=== PATIENT | male | born 1935 | race Caucasian/White ===

== ENCOUNTER 2019-06-29 20:21 | Inpatient (IN) | payer MEDICARE, OTHER ==
[~2019-06-29] VITALS: Ht 170.2 cm; Wt 117.7 kg
[2019-06-29 20:40] VITALS: BP 162/81
[2019-06-29 21:29] LABS: ABSOLUTE BASOPHILS 0.1 thou/uL (0.0-0.2); ABSOLUTE EOSINOPHILS 0.2 thou/uL (0.0-0.7); ABSOLUTE LYMPHOCYTES 0.7 thou/uL (0.8-5.3); ABSOLUTE MONOCYTES 1.2 thou/uL (0.0-1.2); BASOPHILS 0.7 %; EOSINOPHILS 1.7 %; HEMATOCRIT 41.4 % (42.0-52.0); HEMOGLOBIN 13.8 gm/dL (14.0-18.0); LYMPHOCYTES 7.9 %; MCH 29.6 pg (26.0-34.0); MCHC 33.4 g/dL (28.0-37.0); MCV 88.7 fL (80.0-100.0); MONOCYTES 13.3 %; MPV 7.8 fl. (7.2-11.1); NUCLEATED RBCS 0 /100WBC; PLATELET COUNT* 143 thou/uL (150-400); POLYS 76.4 %; RBC 4.67 mil/uL (4.50-6.00); RDW-CV 20.3 % (10.5-14.5); WBC 9.1 thou/uL (4.0-11.0)
[2019-06-29 21:44] LABS: CALCIUM 8.7 mg/dL (8.5-10.1); CREATININE 1.8 mg/dL (0.6-1.3); POTASSIUM 4.7 mmol/L (3.5-5.1)
[2019-06-29 21:49] LABS: INFLUENZA A ANTIGEN Negative (Negative); INFLUENZA B ANTIGEN Negative (Negative)
[2019-06-29 21:55] LABS: ALBUMIN 3.2 g/dL (3.4-5.0); TOTAL BILIRUBIN 0.3 mg/dL (<0.1-1.0); TOTAL PROTEIN 7.4 g/dL (6.4-8.2)
[2019-06-29 21:57] LABS: URINE BILIRUBIN NEGATIVE (Negative); URINE BLOOD TRACE (Negative); URINE CLARITY CLEAR; URINE COLOR YELLOW; URINE GLUCOSE-RANDOM NEGATIVE (Negative); URINE KETONES NEGATIVE (Negative); URINE LEUKOCYTES-REFLEX NEGATIVE (Negative); URINE NITRITE-REFLEX NEGATIVE (Negative); URINE PROTEIN 2+ (Negative); URINE SPECIFIC GRAVITY 1.025 (1.005-1.030); URINE UROBILINOGEN 0.2 E.U./dl (0.2-1.0)
[2019-06-29 22:11] LABS: BACTERIA-REFLEX 1-9 Few /HPF (None Seen); CRYSTALS None Seen /LPF (None Seen); HYALINE CASTS 0-3 Few /LPF (None Seen); SQUAMOUS 0-3 Few /LPF (0-3); URINE RBC 0-2 Rare /HPF (0-2); URINE WBC-REFLEX 0-5 Rare /HPF (0-5)
[2019-06-29 22:18] LABS: ANISOCYTOSIS 2+; PLATELET ESTIMATE ADEQUATE; POIKILOCYTOSIS 1+
[2019-06-29 23:50] VITALS: BP 160/69
[2019-06-29 23:53] VITALS: BP 162/68
[2019-06-30 04:01] VITALS: BP 141/71
--- NOTE | 2019-06-30 07:38 | NUR ---
RECEIVED REPORT AND ASSUMED CARE. ADMISSION COMPLETED BY NURSING. PT HOME MED REC NOT COMPLETED, PT UNABLE TO REPORT , STATES HE WILL HAVE TO GET FROM HIS 06/30/19. LATER IN SHIFT PT HAD MOBITZ TYPE 2 HEART BLOCK. HR 27. CARDIOLOGY NOTIFIED HOURLY ROUNDING COMPLETED AND ALL NEEDS MET
[2019-06-30 08:00] VITALS: BP 151/85
[2019-06-30] MEDS ORDERED: FLOMAX0.4 MG PO (08:59)
[2019-06-30] MEDS ORDERED: LEXAPRO 10 MG T10 M1 PO (09:00)
[2019-06-30] MEDS ORDERED: HYDRALAZINE 5050 MG PO (09:01)
[2019-06-30] MEDS ORDERED: COZAAR 25 MG TA25 M1 PO (09:02)
[2019-06-30] MEDS ORDERED: PLAVIX 75 MG TA75 M1 PO (09:03)
[2019-06-30] MEDS ORDERED: NORVASC 2.5 MG2.5 M1 PO (09:03)
[2019-06-30] MEDS ORDERED: LASIX 40 MG TAB40 MG PO (09:04)
[2019-06-30] MEDS ORDERED: CARVEDILOL25 MG PO (09:05)
[2019-06-30] MEDS ORDERED: NEURONTIN100 MG PO (09:06)
[2019-06-30] MEDS ORDERED: LEVO-T25 MCG PO (09:25)
[2019-06-30] MEDS ORDERED: ISOSORBIDE DINI30 MG PO (09:26)
[2019-06-30] MEDS ORDERED: MELATONIN3 M1 PO (09:27)
--- NOTE | 2019-06-30 10:52 | EKG ---
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
[2019-06-30 11:12] LABS: ABSOLUTE EOSINOPHILS 0.2 thou/uL (0.0-0.7); ABSOLUTE LYMPHOCYTES 0.8 thou/uL (0.8-5.3); ABSOLUTE NEUTROPHILS 5.8 thou/uL (1.6-8.1); BASOPHILS 0.4 %; EOSINOPHILS 1.9 %; HEMATOCRIT 41.5 % (42.0-52.0); HEMOGLOBIN 13.8 gm/dL (14.0-18.0); LYMPHOCYTES 10.2 %; MCH 29.5 pg (26.0-34.0); MCHC 33.2 g/dL (28.0-37.0); MCV 88.9 fL (80.0-100.0); MONOCYTES 12.5 %; MPV 7.4 fl. (7.2-11.1); NUCLEATED RBCS 0 /100WBC; PLATELET COUNT* 137 thou/uL (150-400); RBC 4.67 mil/uL (4.50-6.00); WBC 7.8 thou/uL (4.0-11.0)
[2019-06-30 11:17] LABS: CALCIUM 8.9 mg/dL (8.5-10.1); CREATININE 1.6 mg/dL (0.6-1.3); POTASSIUM 4.4 mmol/L (3.5-5.1)
[2019-06-30 12:00] VITALS: BP 141/72
--- NOTE | 2019-06-30 12:16 | NUR ---
STAFF WAS W/PT; CM UNABLE TO COMPLETE ASSESSMENT. PER CHART: PT LIVES W/DTR, PREV. STATED AT LTC FACILITY. PT USE 2L O2 @ HOME.
--- NOTE | 2019-06-30 15:13 | 2DMMODE ---
[place] [address] 2 D/M-MODE ECHOCARDIOGRAM Name: ASHLEY SANDERS Room: [facility] ADM IN [place].[facility].#: [id number] Admission: 06/29/19 Attend Phys: Larissa Butler, Discharge: Date of : 31 Date of Service: 06/30/19 1512 Report #: [id number] THIS REPORT FOR: cc: Radha Bueno NP, Stefany NP Blick, David R. MD [facility] ~ APPROVED REPORT Study performed: 06/30/2019 10:47:02 EXAM: Comprehensive 2D, Doppler, and color-flow Echocardiogram Patient Location: In-Patient Room #: 227 Status: routine BSA: 2.15 HR: 62 bpm BP: 141/71 mmHg Rhythm: NSR Other Information Study Quality: Good Indications Dyspnea CAD 2D Dimensions IVSd: 10.08 (7-11mm) LVOT Diam: 19.78 (18-24mm) LVDd: 58.28 mm PWd: 10.92 (7-11mm) Ascending Ao: 39.89 (22-36mm) LVDs: 43.20 (25-40mm) Aortic Root: 36.28 mm Volumes Left Atrial Volume (Systole) LA ESV Index: 36.80 mL/m2 Aortic Valve AoV Peak Enzo.: 1.79 m/s AO Peak Gr.: 12.82 mmHg LVOT Max P.81 mmHg AO Mean Gr.: 7.47 mmHg LVOT Mean P.76 mmHg LVOT Max V: 1.21 m/s AO V2 VTI: 40.10 cm LVOT Mean V: 0.76 m/s MARIUSZ (VTI): 1.96 cm2 LVOT V1 VTI: 25.63 [place] [address] 2 D/M-MODE ECHOCARDIOGRAM Name: MARILYNASHLEY Jerri Room: [address] IN [facility].#: [id number] Admission: 06/29/19 Attend Phys: Larissa Butler, Discharge: Date of : 31 Date of Service: 06/30/19 1512 Report #: [id number] Mitral Valve E/A Ratio: 0.90 MV Decel. Time: 246.56 ms MV E Max Enzo.: 1.07 m/s MV PHT: 71.50 ms MVA (PHT): 3.08 cm2 TDI E/Lateral E': 8.92 Lateral E' Enzo.: 0.12 m/s Pulmonary Valve PV Peak Enzo.: 0.99 m/s PV Peak Gr.: 3.89 mmHg Left Ventricle Left ventricle is mildly dilated. paradoxical septal motion consistent with previous thoracotomy There is normal left ventricular wall thickness. Left ventricular systolic function is severely decreased. LVEF is 25-30%. The left ventricular diastolic function is normal. Right Ventricle The right ventricle is normal size. The right ventricular systolic function is normal. Atria Left atrium is mildly dilated. The right atrium size is normal. Aortic Valve The aortic valve is normal in structure. Trace aortic regurgitation. There is no aortic valvular stenosis. Mitral Valve The mitral valve is normal in structure. Trace mitral regurgitation. No evidence of mitral valve stenosis. Tricuspid Valve The tricuspid valve is normal in structure. There is trace tricuspid valve regurgitation noted. Pulmonic Valve The pulmonary valve is normal in structure. Trace [place]mon[place] [address] 2 D/M-MODE ECHOCARDIOGRAM Name: ASHLEY SANDERS Room: [address] IN .R.#: [id number] Admission: 06/29/19 Attend Phys: Larissa Butler, Discharge: Date of : 31 Date of Service: 06/30/19 151 Report #: [id number] [place] Aortic root is mildly dilated. IVC is normal in size and collapses >50% with inspiration. Pericardium There is no pericardial effusion. <Conclusion> LVEF is 25-30%. Left atrium is mildly dilated. <ELECTRONICALLY SIGNED> By: Tom Obando MD, [facility] 03/1511 11 11 Tom Obando MD, FACC /INF
[2019-06-30 16:00] VITALS: BP 145/82
--- NOTE | 2019-06-30 16:51 | CON ---
[address] [address] CONSULTATION Name: ASHLEY SANDERS Room: [place] [address] ADM IN [facility].#: [id number] Admission: 06/29/19 Attend Phys: Larissa Butler MD Discharge: Date of : 31 Report #: [id number] THIS REPORT FOR: //name// cc: Radha Bueno NP, Stefany NP ~ THIS REPORT FOR: //name// CC: Larissa Bueno NP DATE OF SERVICE: 06/30/2019 CARDIOLOGY CONSULTATION HISTORY OF PRESENT ILLNESS: The patient is an 84-year-old white male who I was asked to see in the hospital today after he complained of lower extremity edema. The history is obtained from the patient as well as some old records. He has never been here to [place] before. According to the records, he had coronary artery bypass surgery years ago. He does not know which hospital he had that. He denies recent chest pain. Because the patient is not very active and uses a walker, he is currently being transitioned from home to a [facility] facility. He actually saw his nurse practitioner a week ago for swelling of his feet. He has had some shortness of breath, but no fever or cough. He was brought to the Emergency Room last night by private vehicle because of increasing shortness of breath and leg swelling. He has been in assisted living now. He is on oxygen at home. PAST MEDICAL HISTORY: Otherwise significant for knee surgery. MEDICATIONS: Consist of insulin, amlodipine, losartan, carvedilol, Synthroid, Lasix, Plavix, Imdur, Flomax, Neurontin, and hydralazine. ALLERGIES: He had a previous INTOLERANCE to RANEXA. FAMILY HISTORY: Noncontributory. SOCIAL HISTORY: He is . He and his live in [place]. No smoking. No alcohol abuse. REVIEW OF SYSTEMS: He has had no previous history of stroke. He does have COPD. He has memory loss, chronic kidney disease. No cancer. He is overweight. PHYSICAL EXAMINATION: GENERAL: Revealed an obese elderly male, appeared [place] [address] CONSULTATION Name: ASHLEY SANDERS Room: [address] IN [facility]#: [id number] Admission: 06/29/19 Attend Phys: Larissa Butler MD Discharge: Date of : 31 Report #: [id number] VITAL SIGNS: He had a blood pressure of 140/70, pulse 60, he is afebrile. HEENT: He was anicteric. Conjunctivae are pink. Mucous members moist. CHEST: Revealed expiratory wheezes. CARDIOVASCULAR: Regular rate and rhythm. ABDOMEN: Obese. EXTREMITIES: He had trace edema. Dorsalis pedis pulse 2+ bilaterally. SKIN: Warm and dry. NEUROLOGIC: Nonfocal. RADIOLOGICAL DATA: His ECG on admission showed a sinus rhythm, first-degree AV block, left bundle branch block. Last night, ECG showed sinus rhythm with 2:1 AV block consistent with Mobitz type 2 block. His workup, he had portable chest x-ray in the Emergency Room last night that showed cardiomegaly and clear lung finn. LABORATORY DATA: Sodium 139, BUN 32, creatinine 1.8, glucose 136, and BNP 607. Troponin 0.06. White blood cell count 9.1, hematocrit 41.4. Urinalysis 2+ protein, few bacteria, rare white blood cells. IMPRESSION AND RECOMMENDATIONS: 1. Mobitz type 2 atrioventricular block. I would discontinue the patient's beta-bernard. I would check thyroid function studies. 2. Coronary artery disease. Previous bypass surgery. No recent angina. The patient is on Plavix. 3. Lower extremity edema. Suspect venous insufficiency. 4. Chronic kidney disease. I would check echocardiogram. 5. Hypertension. The patient is on calcium bernard, ARB, and beta-bernard. <ELECTRONICALLY SIGNED> By: Tom Obando MD, FACC 06/30/19 1651 0852 [id number] Obando MD, FACC /nt
--- NOTE | 2019-06-30 18:10 | NUR ---
PATIENT RESTING IN BED. BEDREST ORDERED. LOWER EXTREMITY 2+/3+ EDEMA. PATIENT HAS PERIODS OF SEVERE CONFUSION THAT REQIURES QUICK REACTION TO PREVENT FROM FALLS, HE HAS BEEN REORIENTED MULTIPLE TIMES TODAY IN RESPECT TO PLACE, SITUATION, AND LENGTH OF TIME IN HOSPITAL. HOURLYR ROUNDING IS BEING COMPLETED FOR PATIENT SAFETY.
[2019-06-30 20:30] VITALS: BP 151/77
[2019-07-01] VITALS (7 sets, daily range): BP systolic 110–173; BP diastolic 50–86
--- NOTE | 2019-07-01 05:49 | NUR ---
PT FOUND AT BEGINING OF SHIFT WANDERING AROUND IN ROOM, USING THE LINEN CART A WALKER. PT HAD BEEN INCONTINENT OF B&B AND PULLED OUT HIS IV. PT VERY CONFUSED STATING THAT HE THOUGHT THAT HE WAS TRYING TO ESCAPE. PT CLEANED UP, BED CHANGED AND MOVED TO A ROOM CLOSER TO THE NURSES STATION. NOTIFIED THAT PTS CONFUSION IS INCREASING. FALL PRECAUTIONS IN PLACE. ISOLATION MAINTAINED. PT REPORTED NO PAIN THIS SHIFT. WILL CONTINUE WITH PLAN OF CARE.
[2019-07-01 06:03] LABS: CALCIUM 8.8 mg/dL (8.5-10.1); CREATININE 1.3 mg/dL (0.6-1.3); POTASSIUM 3.9 mmol/L (3.5-5.1)
--- NOTE | 2019-07-01 10:39 | NUR ---
WOUND NURSE: PATIENT PROVIDED WITH SIZE F TUBIGRIPS FOR BLE EDEMA -- GIVEN TO HIS NURSE, ROGER. HOWEVER, PATIENT ATTEMPTED TO WONDER OUT OF ROOM. ASSISTED WHITEWATER RAFTING GUIDE IN RETURNING PATIENT TO BED.
--- NOTE | 2019-07-01 10:57 | NUR ---
WOUND NURSE: PATIENT SEEN TO APPLY SIZE F TUBIGRIPS TO HELP CONTROL PERIPHERAL EDEMA TO BLE. THIS WAS PERFORMED BY THIS NURSE. PATIENT WITH FEW CONTUSIONS ALONG THE RIGHT TIBIAL ASPECT AND WHICH ARE CLOSED WITH INTACT STABLE SCABS. NO DRESSING REQUIRED TO THIS AREA AT THIS TIME.
--- NOTE | 2019-07-01 11:35 | CON ---
[address] [address] CONSULTATION Name: ASHLEY SANDERS Room: [address] IN [facility].R.#: [id number] Admission: 06/29/19 Attend Phys: Larissa Butler MD Discharge: Date of : 31 Report #: [id number] THIS REPORT FOR: //name// cc: Radha Bueno NP, Stefany NP ~ THIS REPORT FOR: //name// CC: Larissa Bueno DATE OF SERVICE: 06/30/2019 REQUESTING PHYSICIAN: Larissa Butler MD REASON FOR CONSULTATION: Anasarca, chronic kidney disease. HISTORY OF PRESENT ILLNESS: The patient is an 84-year-old gentleman who presents to the hospital with complaints of lower extremity edema. The patient also apparently has some shortness of breath on admission, but during my examination, when I asked him about shortness of breath, he said that he did not have shortness of breath. It is possible that he has some dementia and cannot really remember all the symptoms, the patient is 84 years old. His creatinine on admission was 1.8, it is 1.6 now. I do not know baseline of his creatinine. PAST MEDICAL HISTORY: Significant for: 1. Diabetes mellitus type 2. 2. Coronary artery disease status post bypass graft surgery. 3. History of hypertension. 4. Obesity. MEDICATIONS: The medications that he was taking at home include: 1. Amlodipine. 2. Flomax. 3. Imdur. 4. Plavix. 5. Lasix. 6. Losartan. 7. Carvedilol. 8. Synthroid. Here in the hospital, he was resumed on: 1. Tamsulosin. 2. Albuterol. 3[place] [address] CONSULTATION Name: ASHLEY SANDERS Room: [address]#: [id number] Admission: 06/29/19 Attend Phys: Larissa Butler MD Discharge: Date of : 33 Report #: [id number] 4. Furosemide 40 mg IV daily. 5. Plavix. His amlodipine was appropriately stopped. FAMILY HISTORY: Noncontributory. SOCIAL HISTORY: No current tobacco or alcohol abuse. REVIEW OF SYSTEMS: Positive for the symptoms as I mentioned earlier. However, it is not very reliable. PHYSICAL EXAMINATION: GENERAL: Awake, alert. VITAL SIGNS: Blood pressure 140/71, heart rate 60, respirations 19, afebrile. HEENT: Pupils are round. NECK: Fatty. LUNGS: Decreased air movements. CARDIOVASCULAR: Regular rate. ABDOMEN: Obese, soft. LOWER EXTREMITIES: Chronic 1-2+ edema. LABORATORY DATA: Serum sodium 142, potassium 4.4, chloride 104, carbon dioxide 34, BUN 27, creatinine 1.6. Urinalysis showed some 2+ protein, trace blood, 2-3 red blood cells, 0-5 white blood cells, few bacteria. ASSESSMENT: 1. Edema, probably multifactorial, probably combination of his age who has been ____, use of amlodipine and possible congestive heart failure. 2. 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 3. Hypertension. 4. Diabetes mellitus type 2. 5. Obesity. 6. Cardiomyopathy. He has a very enlarged heart on chest x-ray. PLAN: 1. Avoid amlodipine due to edema. 2. Control his blood pressure. 3. Obtain renal ultrasound. 4. Follow his labs. 5. Follow [place] [address] CONSULTATION Name: ASHLEY SANDERS Jerri Room: [address] IN .R.#: [id number] Admission: 06/29/19 Attend Phys: Larissa Butler MD Discharge: Date of : 31 Report #: [id number] Thank you very much for asking my opinion. <ELECTRONICALLY SIGNED> By: Olivier Anderson MD 07/01/19 1135 1215 1319Atiesha Anderson MD /nt
--- NOTE | 2019-07-01 14:14 | EKG ---
[place] [address] ELECTROCARDIOGRAM REPORT Name: ASHLEY SANDERS Room: [address] ADM IN .R.#: [id number] Admission: 06/29/19 Attend Phys: Larissa Butler, Discharge: Date of : 31 Date of Service: 07/01/19 0844 Report #: [id number] THIS REPORT FOR: //name// [facility] Test Date: 2019-07-01 Test Time: 08:44:56 Pat Name: ASHLEY SANDERS Department: Room: [facility] Gender: M Patient Access Manager: : 1935 Requested By: Tom Obando Order Number: [id number] Alexandr MD: Raheem Blackburn Measurements Intervals [place] Rate: 69 P: 37 DE: 298 QRS: -51 QRSD: 132 T: 127 QT: 410 QTc: 440 Interpretive Statements Sinus rhythm Prolonged DE interval Left bundle branch block Baseline wander in lead(s) V2 Compared to ECG 06/29/2019 21:02:37 No significant changes Electronically Signed On 07-01-2019 14:13:21 CDT by Raheem Blackburn [email or web address] <ELECTRONICALLY SIGNED> By: Raheem Blackburn MD, FACC 07/01/19 1413 0844 0844 Raheem Blackburn MD, [facility] /EPI
--- NOTE | 2019-07-01 19:55 | NUR ---
ASSUMED PT CARE AT 0800, CONFUSED FORGETFUL .O2 SAT 90'S 2L NC. PT DENIES PAIN. PT LOWER EXT EDEMA NOTED. PT ON TUPIGRIP. PT ON DIURETIC. PT GET MORE CONFUSED AROUND 1700. PT TRYING TO LEAVE THE ROOM, IMPULSIVE, CALLING 911 AND POLICE STATION. WE CALLED SECURITY AND TALKED WITH PT. GOT AN ORDER FOR ZYPREXA MED FROM PROVIDER, NOT GIVEN PT STARTED TO CALM DOWN. MEDS PUT ON PATIEN ACCESS, ENDORSED TO NIGHT RN FOR ONE TIME USE. PT ON ISO FOR PENDING COVID 19 TEST. LAB CALLED, STATE THAT THE FIRST SPECIMEN CONTAINER LEAK ON TRANSIT.TO COLLECT ANOTHER SPECIMEN. VSS, AM ASSESSMENT CHARTED, MEDS GIVEN PER MAR. CALL LIGHT WITHIN REACH, WILL CONTINUE TO MONITOR
[2019-07-02 04:00] VITALS: BP 168/82
[2019-07-02 04:54] LABS: CALCIUM 8.8 mg/dL (8.5-10.1); CREATININE 1.4 mg/dL (0.6-1.3); POTASSIUM 3.8 mmol/L (3.5-5.1)
--- NOTE | 2019-07-02 07:51 | NUR ---
VSS. SEE MAR. SEE CHARTING. FALL PRECAUTIONS IN PLACE. HOURLY ROUNDING FOR SAFETY.
[2019-07-02 08:05] VITALS: BP 156/72
[2019-07-02 12:09] VITALS: BP 144/80
--- NOTE | 2019-07-02 12:56 | NUR ---
ASSUMED CARE OF PT AT 0730. PT RESTING IN RECLINER WAITING FOR BREAKFAST. CHAIR ALARM IN PLACE. A&0X2, FORGETFUL, CONFUSED AT TIMES AND IMPULSIVE. PT NOTED TO BE WALKING TO BATHROOM WITHOUT CALLING FOR HIM. EDUCATION GIVEN. PT DENIES ANY PAIN OR SHORTNESS OF BREATH AT THIS TIME. ON RA SAT 93%- WHEEZES NOTED- 2L NC ON STANDY PRN. TRACING SR WITH BBB AND FIRST DEGREE ON THE CLOTH STRETCHER. PT UP WITH 1 ASSIST. IN ENHANCED PRECAUTIONS TO RULE OUT COVID. CELLULITIS NOTED TO BILATERAL LE'S. DR SAN HERE TO SEE PT. ORDERS RECEIVED FOR PT AND OT EVAL AND TREAT AND SNF AT DISCHARGE PER DR RECINOS RECOMMENDATION. DR SAN SPOKE WITH PT DAUGHTER AND DAUGHTER WANTS TO BRING PT HOME AND CARE FOR HIM THERE. DISCHARGE ORDERS RECEIVED. AM ASSESSMENT CAHRTED. MEDICATIONS PER JUN. PT REPOSITIONS SELF WITH REMINDERS. HOURLY ROUNDING OBSERVED. BED IN LOW POSITION. BED/CHAIR ALARM IN PLACE. FALL PRECAUTIONS IN PLACE. CALL LIGHT WITHIN REACH. WILL CONTINUE PLAN OF CARE.
[2019-07-02] MEDS ORDERED: SPIRONOLACTONE25 M1 PO (15:03)
[2019-07-02] MEDS ORDERED: COMBIVENT RESPIM4 GM INH (15:06)
[2019-07-02] MEDS ORDERED: LIPITOR40 MG PO (15:09)
--- NOTE | 2019-07-02 17:05 | NUR ---
DISCHARGE ORDERS RECEIVED. DISCHARGE INSTRUCTIONS, CARE NOTES, SCRIPTS AND FOLLOW UP APPTS GIVEN TO PT. PT COMMUNICATES UNDERSTANDING OF DISCHARGE TEACHING. TEACHING GIVEN TO PT DAUGHTER AND VIA TELEPHONE AND THEY COMMUNICATE UNDERSTANDING WELL. CARDIAC REHAB IN WITH PT TO EDUCATION. IV AND OCCUPATIONAL HEALTH PHYSICIAN REMOVED. DISCHARGE WOUND PHOTOS TAKEN AND PLACED IN CHART. PT DISCHARGED WITH ALL BELONGINGS AND PAPERWORK VIA WHEELCHAIR WITH NURSING STAFF TO AND DAUGHTERS OWN PERSONAL VEHICLE.
== END 2019-07-02 17:08 | disposition home or self-care (01) | DRG 291 ==
LOC: M.ERS 20:21 → M.2W 22:41 → M.TBA-ER 22:41 → M.2W 23:27
PROVIDERS: Emergency Medicine; Internal Medicine; Internal Medicine Cardiovascular Disease; ADMIT Internal Medicine
DX: I13.0 Hypertensive heart and chronic kidney disease with heart failure and stage 1 through stage 4 chronic kidney disease, or unspecified chronic kidney disease (principal); G93.41 Metabolic encephalopathy; I50.23 Acute on chronic systolic (congestive) heart failure; N17.9 Acute kidney failure, unspecified; Z68.41 Body mass index [BMI] 40.0-44.9, adult; N18.3 Chronic kidney disease, stage 3 (moderate); I44.1 Atrioventricular block, second degree; I25.10 Atherosclerotic heart disease of native coronary artery without angina pectoris; E66.9 Obesity, unspecified; F03.90 Unspecified dementia, unspecified severity, without behavioral disturbance, psychotic disturbance, mood disturbance, and anxiety; I42.9 Cardiomyopathy, unspecified; Z99.81 Dependence on supplemental oxygen; Z95.1 Presence of aortocoronary bypass graft; Z79.4 Long term (current) use of insulin; Z79.899 Other long term (current) drug therapy